=== PATIENT | female | born 1970 | race Caucasian/White ===

== ENCOUNTER 2018-08-16 15:47 | Emergency (ER) | payer OTHER ==
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
[2018-08-16 16:22] VITALS: BP 110/38; PULSE 64; TEMP 98.2; BMI 24.1
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
== END 2018-08-16 17:54 | disposition home or self-care (01) ==
LOC: JERFT 15:47
DX: S16.1XXA Strain of muscle, fascia and tendon at neck level, initial encounter (principal); V43.62XA Car passenger injured in collision with other type car in traffic accident, initial encounter; Y92.488 Other paved roadways as the place of occurrence of the external cause; Y93.89 Activity, other specified; Y99.8 Other external cause status
CPT/HCPCS: 99281-25